=== PATIENT | male | born 1940 | race Caucasian/White ===

== ENCOUNTER → 2017-10-23 | Outpatient (CLI) | payer OTHER, MEDICARE ==
[~2017-10-23] MED LIST: ALAVERT10 M1 PO; AMARYL2 MG PO; DOXAZOSIN MESYLA2 MG PO; FLOMAX0.4 MG PO; FLUTICASONE PRO16 GM BOTH NARES; LOSARTAN POTASS25 MG PO; METFORMIN HCL500 MG PO; MOTRIN600 MG PO; PERCOCET 5/31 TABLET PO; PRILOSEC20 MG PO; TRAMADOL HCL50 MG PO; ZOFRAN4 MG PO
== END | disposition home or self-care (01) ==
DX: M17.12 Unilateral primary osteoarthritis, left knee (principal); R26.2 Difficulty in walking, not elsewhere classified; M25.562 Pain in left knee; M25.662 Stiffness of left knee, not elsewhere classified; M62.81 Muscle weakness (generalized); Z74.1 Need for assistance with personal care
CPT/HCPCS: 97161 GP; 97165 GO; 97530 GP; 97535 GO; G8978 GP; G8979 GP; G8980 GP; G8987 GO; G8988 GO; G8989 GO

== ENCOUNTER 2017-11-25 22:10 | Inpatient (IN) | payer OTHER, MEDICARE ==
[~2017-11-25] VITALS: Ht 172.7 cm; Wt 65.0 kg
[~2017-11-25 22:10] MED LIST changes: +ADVIL,NUPRIN,M200 MG PO; +ASPIR 8181 M1 PO; +ATIVAN0.5 MG PO; +GLUCOPHAGE850 MG PO; +IBUPROFEN PM S1 EACH PO; +IPRATROPIUM BRO30 ML BOTH NARES; +LIPITOR10 MG PO; -METFORMIN HCL500 MG PO; +NEOSPORIN ANT70.8 GM TP; +PROSCAR5 MG PO; +RANITIDINE HCL150 M1 PO; +SINGULAIR10 MG PO; +VITAMIN B-121000 MC3 PO; +ZOLOFT50 MG PO
[2017-11-26 10:48] VITALS: BP 156/73
[2017-11-26] MEDS ORDERED: ULTRAM50 MG PO (11:55)
[2017-11-26 17:24] VITALS: BP 136/68
[2017-11-26 20:56] VITALS: BP 149/67
[2017-11-26 22:16] VITALS: BP 125/65
[2017-11-27 00:22] VITALS: BP 136/68
[2017-11-27 04:06] VITALS: BP 100/49
[2017-11-27 06:30] LABS: HEMATOCRIT 30.9 % (38.0-50.0); MCV 93.9 FL (86-99)
[2017-11-27 06:39] LABS: HEMOGLOBIN 10.4 G/DL (12.5-16.6)
[2017-11-27 07:09] LABS: CHLORIDE 105 MEQ/L (99-109); CREATININE 0.6 MG/DL (0.6-1.3); GFR ESTIMATE (CALCULATED) > 59 mL/min/ (58.99-99999); GLUCOSE 132 mg/dL (70-99); POTASSIUM 4.3 MEQ/L (3.7-5.4); SODIUM 139 MEQ/L (136-147); UREA NITROGEN (BUN) 23 mg/dL (9-23)
[2017-11-27 08:22] VITALS: BP 114/57
[2017-11-27 11:37] VITALS: BP 123/69
[2017-11-27] MEDS ORDERED: ELIQUIS2.5 MG PO (12:31)
[2017-11-27] MEDS ORDERED: HYDROCODON-ACE1 EAC7 PO (12:31)
== END 2017-11-27 14:36 | DRG 470 ==
LOC: ENRESERV 22:10 → 2SOUTH 11-26 09:27 → 3WEST 11-26 16:57
PROVIDERS: Orthopaedic Surgery
PROC: 0SRD0J9 Replacement of Left Knee Joint with Synthetic Substitute, Cemented, Open Approach (ICD-10-PCS; principal; 2017-11-26)
DX: M17.12 Unilateral primary osteoarthritis, left knee (principal); I10 Essential (primary) hypertension; E11.9 Type 2 diabetes mellitus without complications; E78.5 Hyperlipidemia, unspecified; Z79.899 Other long term (current) drug therapy
CPT/HCPCS: 80048; 82948; 85014; 85018; C1713; J0690; J1815; J1885; J2250; J2405; J2795; J7050; J7120; S0020